=== PATIENT | male | born 1995 | race Caucasian/White ===

== ENCOUNTER 2023-06-11 01:44 | Inpatient (IN) | payer MEDICAID, OTHER, SELFPAY ==
[2023-06-11] VITALS (7 sets, daily range): BP systolic 126–149; BP diastolic 84–109; PULSE 104–128; RESP 17–20; TEMP 36.7–37.6; O2SAT 96–100; BMI 26.6; BMI 26.7
[2023-06-11 02:40] LABS: MANUAL DIFF FLAG NO
[2023-06-11 02:41] LABS: Basophils Percent Auto 0.4 % (0-2); Eosinophils Percent Auto 0.1 % (0-4); Hematocrit 48.8 % (42.0-52.0); Hemoglobin 16.6 g/dl (14.0-18.0); Imm Gran Abs Auto 0.03 X10*3/uL (0.00-0.03); Imm Gran Pct Auto 0.4 % (0.0-0.4); Lymphocytes Absolute Auto 2.2 X10*3/uL (1.2-4.9); Lymphocytes Percent Auto 27.1 % (20-40); Mean Corpuscular Volume 85.2 fL (80.0-98.0); Mean Platelet Volume 8.8 fL (9.4-12.4); Monocytes Absolute Auto 0.4 X10*3/uL (0.1-1.2); Monocytes Percent Auto 4.6 % (2-11); Neutrophils Absolute Auto 5.5 x10*3/uL (2.0-8.3); Neutrophils Percent Auto 67.4 % (45-73); Platelet Count 393 X10*3/uL (160-400); Red Blood Count 5.73 X10*6/uL (4.60-5.80); Red Cell Distribution Width 12.9 % (11.0-16.0); White Blood Count 8.1 X10*3/uL (4.8-10.8)
[2023-06-11 02:51] LABS: Amphetamine Screen Urine Not Detected (Not Detect); Barbiturates, Urine Not Detected (Not Detect); Benzodiazepines Screen Urine Not Detected (Not Detect); Cannabinoid Screen Urine Not Detected (Not Detect); Cocaine Screen Urine Not Detected (Not Detect); Fentanyl, urine Not Detected (Not Detect); Opiate Screen Urine Not Detected (Not Detect); Phencyclidine Screen Urine Not Detected (Not Detect)
[2023-06-11 03:02] LABS: COVID-19 Test Negative (Negative); IDNOW Serial# 6674DD1D
[2023-06-11 03:04] LABS: Alanine Aminotransferase 40 U/L (0-40); Albumin Level 4.9 g/dL (3.5-5.0); Alkaline Phosphatase 115 U/L (39-117); Anion Gap 19 (12-20); Aspartate Amino Transferase 42 U/L (5-37); Bilirubin Total 0.4 mg/dL (0.0-1.0); Blood Urea Nitrogen 10 mg/dL (9-16); Calcium 9.1 mg/dL (8.4-10.2); Carbon Dioxide 26 mmol/L (22-29); Chloride 105 mmol/L (96-108); Creatinine Clr Calc Pharmacy 110.6; Estimated Glomerular Filt Rate > 60; Ethanol 265 mg/dL; Glucose Random 97 mg/dL (60-115); Potassium 3.8 mmol/L (3.3-5.1); Sodium 146 mmol/L (135-145); Total Protein 8.5 g/dL (6.5-8.0)
--- NOTE | 2023-06-11 05:55 | PC.NURSE ---
Patient slept through the night, no distress observed/reported, behavior pleasant and non concerning, med rec completed/pending provider's approval, labs completed/resulted, asymptomatic of ETOH withdrawal at this time, care consult ordered/pending evaluation, will continue to monitor.
--- NOTE | 2023-06-11 07:02 | PC.NURSE ---
patient appears to remain asleep at present respirations are even and unlabored patient appears in no distress
--- NOTE | 2023-06-11 07:39 | ED.PSYCH ---
HPI - Psych General Chief Complaint: Psychiatric Symptoms Stated Complaint: SI plan Time Seen by Provider: 06/11/23 02:23 History of Present Illness HPI Narrative: woke up patient is a 28-year-old male presents today after drinking alcohol having thoughts of wanting to kill himself. Patient subsequently came to the ED for further evaluation he has no specific plans. Denies any other recreational drugs. He has a history of bipolar. He has been out of his medication for 2 Months. No diaphoresis. No fever no chills. No chest pain. Patient is from home Related Data Home Medications Medication Instructions Recorded Confirmed dextroamphetamine-amphetamine 10 1 tab PO DAILY 06/11/23 06/11/23 mg tablet dextroamphetamine-amphetamine ER 30 mg PO QAM 06/11/23 06/11/23 30 mg 24hr capsule,extend release (Adderall XR) doxepin 50 mg capsule 50 mg PO BEDTIME 06/11/23 06/11/23 lamotrigine 150 mg tablet 150 mg PO DAILY 06/11/23 06/11/23 (Lamictal) lurasidone 40 mg tablet 40 mg PO QPM 06/11/23 06/11/23 naltrexone 50 mg tablet 50 mg PO QAM 06/11/23 06/11/23 Allergies Allergy/AdvReac Type Severity Reaction Status Date / Time No Known Allergies Allergy Verified 06/11/23 02:00 Review of Systems Review of Systems: no fever no chills no chest pain or shortness of breath Yes all other systems are reviewed and are negative PMFSH Past Medical History Attestation statement: The following information was validated with the patient. Social History Social History Advance Directives: No Advance Directives Information Provided: No Physical Exam Vital Signs: Vital Signs: Last Vital Signs Temp 98.0 F 06/11/23 06:52 Pulse 104 H 06/11/23 06:52 Resp 17 06/11/23 06:52 BP 126/84 06/11/23 06:52 Pulse Ox 97 06/11/23 06:52 O2 Del Method Room Air 06/11/23 06:52 BMI result Body Mass Index 26.6 Appearance: Alert. Oriented X3. No acute distress. Eyes: Pupils equal, round and reactive to light. ENT: Pharynx normal. Neck: Normal inspection. Neck supple. No lymph nodes noted. No crepitus CVS: Normal heart rate and rhythm. Pulses normal. Normal S1 and S2 Respiratory: No respiratory distress. Breath sounds normal. No Wheezing. No rales Abdomen: Soft and nontender. No rigidity. No distention. good BS x4 Skin: Skin warm and dry. Normal skin color. Normal skin turgor. Extremities: No lower extremity edema. Neurovascular intact to all extremities. No Lacerations. No Rash Neuro: Oriented X 3. No motor deficit. No sensory deficit. Moving all extermities. No slurred speech Medical Decision Making Medical Decision Making MDM Narrative: patient's labs consistent with alcohol intoxication tox screen was otherwise negative. COVID test is negative electrolyte is normal. Will need crisis evaluation for his current predicament. Currently in stable condition. Differential Diagnosis Differential Diagnoses: The differential diagnosis associated with the presentation includes Depression, bipolar Consult Healthcare Provider Management of the patient was discussed with: Front End Developer Designer crisis Lab Data [facility] Lab Attestation statement: I reviewed the patient's lab results. 06/11/23 02:28 06/11/23 02:28 Labs: Lab Results 06/11/23 06/11/23 Range/Units 02:28 02:33 WBC 8.1 (4.8-10.8) X10*3/uL RBC 5.73 (4.60-5.80) X10*6/uL Hgb 16.6 (14.0-18.0) g/dl Hct 48.8 (42.0-52.0) % MCV 85.2 (80.0-98.0) fL MCH 29.0 (27.0-33.0) pg MCHC 34.0 (31.0-36.0) g/dl RDW 12.9 (11.0-16.0) % Plt Count 393 (160-400) X10*3/uL MPV 8.8 L (9.4-12.4) fL Immature Gran % (Auto) 0.4 (0.0-0.4) % Neut % (Auto) 67.4 (45-73) % Lymph % (Auto) 27.1 (20-40) % [place] % (Auto) 4.6 (2-11) % Eos % (Auto) 0.1 (0-4) % Baso % (Auto) 0.4 (0-2) % Lymph # (Auto) 2.2 (1.2-4.9) X10*3/uL [place] # (Auto) 0.4 (0.1-1.2) X10*3/uL Eos # (Auto) 0.0 (0.0-0.4) X10*3/uL Baso # (Auto) 0.0 (0.0-0.2) X10*3/uL Abs Immat Gran (auto) 0.03 (0.00-0.03) X10*3/uL Absolute Neuts (auto) 5.5 (2.0-8.3) x10*3/uL Absolute Nucleated RBC 0.000 (0.0-0.012) X10*3/uL Nucleated RBC % (auto) 0.0 (0.0-0.2) /100WBC Sodium 146 H (135-145) mmol/L Potassium 3.8 (3.3-5.1) mmol/L Chloride 105 (96-108) mmol/L Carbon Dioxide 26 (22-29) mmol/L Anion Gap 19 (12-20) BUN 10 (9-16) mg/dL Creatinine 0.84 (0.5-1.4) mg/dL Estim Creat Clear Calc 110.6 Estimated GFR > 60 Random Glucose 97 (60-115) mg/dL Calcium 9.1 (8.4-10.2) mg/dL Total Bilirubin 0.4 (0.0-1.0) mg/dL AST 42 H (5-37) U/L ALT 40 (0-40) U/L Alkaline Phosphatase 115 (39-117) U/L Total Protein 8.5 H (6.5-8.0) g/dL Albumin 4.9 (3.5-5.0) g/dL Urine Opiates Screen Not Detected (Not Detect) Urine Fentanyl Screen Not Detected (Not Detect) Ur Barbiturates Screen Not Detected (Not Detect) Ur Phencyclidine Scrn Not Detected (Not Detect) Ur Amphetamines Screen Not Detected (Not Detect) U Benzodiazepines Scrn Not Detected (Not Detect) Urine Cocaine Screen Not Detected (Not Detect) U Marijuana (THC) Screen Not Detected (Not Detect) Ethyl Alcohol 265 mg/dL COVID-19 (LARISSA) Negative (Negative) COVID-19 Clin Com See Note Prescription Management I considered prescription management with: Pain Medication not needed Chronic Conditions bipolar Discharge Plan Discharge Clinical Impression: Bipolar disorder Patient Disposition: Still a Patient Prescriptions: No Action lamotrigine [Lamictal] 150 mg Tablet 150 mg PO DAILY doxepin 50 mg Capsule 50 mg PO BEDTIME lurasidone 40 mg Tablet 40 mg PO QPM Rx Instructions: must administer with food (at least 350 calories) dextroamphetamine-amphetamine [Adderall XR] 30 mg Capsule,Extended Release 24hr 30 mg PO QAM naltrexone 50 mg tablet 50 mg PO QAM dextroamphetamine-amphetamine 10 mg tablet 1 tab PO DAILY Interventions: [place]-Suicide Risk Severity Scale Last Done: 06/11/23 05:51
[2023-06-11] MEDS: LORazepam 1 MG TABLET 2 MG PO (10:48)
[2023-06-11] MEDS: Thiamine HCL 100 MG TABLET PO (13:42)
[2023-06-11] MEDS: diazePAM 5 MG TABLET 20 MG PO (13:42)
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
--- NOTE | 2023-06-11 16:19 | PC.NURSE ---
Pt refused flu vaccine at this time
[2023-06-11] MEDS: Doxepin HCl 25 MG CAPSULE 50 MG PO (22:42)
[2023-06-11] MEDS: LORazepam 1 MG TABLET PO (22:42)
[2023-06-12 06:00] VITALS: BP 134/100; PULSE 112; TEMP 36.7; O2SAT 97
[2023-06-12 06:57] LABS: Estimated Average Glucose 111 mg/dL; Hemoglobin A1c % 5.5 % (<6.0)
[2023-06-12 07:12] LABS: Alanine Aminotransferase 33 U/L (0-40); Albumin Level 4.2 g/dL (3.5-5.0); Alkaline Phosphatase 109 U/L (39-117); Anion Gap 13 (12-20); Aspartate Amino Transferase 36 U/L (5-37); Bilirubin Total 1.6 mg/dL (0.0-1.0); Blood Urea Nitrogen 8 mg/dL (9-16); Calcium 9.6 mg/dL (8.4-10.2); Carbon Dioxide 27 mmol/L (22-29); Chloride 103 mmol/L (96-108); Cholesterol 214 mg/dL (<200); Creatinine Clr Calc Pharmacy 119.1; Estimated Glomerular Filt Rate > 60; Glucose Fasting 118 mg/dL (60-99); HDL Cholesterol 52 mg/dL (>40); LDL Cholesterol Calculated 110 mg/dL (<100); Potassium 3.7 mmol/L (3.3-5.1); Sodium 139 mmol/L (135-145); Total Protein 7.4 g/dL (6.5-8.0); Triglycerides 264 mg/dL (<150)
[2023-06-12 07:28] LABS: Thyroid Stimulating Hormone 1.55 uIU/mL (0.32-4.0)
[2023-06-12 07:38] LABS: Folate 10.2 ng/mL (> or = 4.0); Vitamin B12 388 pg/mL (200-900)
[2023-06-12] MEDS: Omeprazole 20 MG CAPSULE.DR PO (07:41)
[2023-06-12] MEDS: Thiamine HCL 100 MG TABLET PO (08:28)
[2023-06-12] MEDS: Naltrexone HCl 50 MG TABLET PO (08:31)
[2023-06-12] MEDS: Acetaminophen 325 MG TABLET 650 MG PO ×2 (08:34→17:30)
[2023-06-12] MEDS: LORazepam 1 MG TABLET PO ×4 (08:34→21:36)
[2023-06-12 17:34] VITALS: BP 138/83; PULSE 100; RESP 16; TEMP 36.6; O2SAT 97
--- NOTE | 2023-06-12 18:19 | HO.PSYCHPN ---
Subjective Subjective Date of Service: 06/12/23 Reason For Visit: SI Interim History: trials of latuda and abilify, both of which gave him akathisia, reportedly. felt lexapro was helpful but believes it led to his solitary manic episode, where he was spending a lot and sleeping around (and also drinking a lot and smoking a lot of cannabis). also felt lamictal was helpful but left him unable to process [his] feelings. does wish to restart prazosin, asks to start at 2 mg QHS as feels 1 mg did not help adequately. discussion held re R/B of various antidepressants in bipolar disorder, pt agrees to re-trial of wellbutrin, to start at 150 mg daily. per staff, CIWA 10 this morning and CIWA 9 this afternoon. dep 9. somewhat SI, no plan. Mental Status Exam Mental Status Exam Narrative: Appearance: wearing street clothes, fair hygiene, in NAD Behavior: cooperative Psychomotor: no agitation or retardation noted Speech: clear, normal rate/rhythm, volume, spontaneous TP: linear TC: feeling depressed Mood: depressed Affect: constricted, normo-intense, non-labile SI: passive HI: none expressed VH/AH: none expressed Delusions: none expressed Insight/judgment: poor x 2. memory/cog: alert, oriented x 3. grossly intact to conversational testing. Diagnostics Vital Signs (24Hr): Vital Signs - 24 hr 06/11/23 19:56 06/12/23 06:00 06/12/23 17:34 Temperature 98.1 F 98.0 F 97.8 F Pulse Rate 125 H 112 H 100 Respiratory Rate 18 16 Blood Pressure 135/86 134/100 H 138/83 Pulse Oximetry 100 97 97 Oxygen Delivery Method Room Air Room Air Room Air BMI result Body Mass Index 26.7 Labs 06/11/23 02:28 06/12/23 06:35 Labs: Laboratory Results - last 48 hr 06/11/23 06/11/23 06/12/23 02:28 02:33 06:35 WBC 8.1 RBC 5.73 Hgb 16.6 Hct 48.8 MCV 85.2 MCH 29.0 MCHC 34.0 RDW 12.9 Plt Count 393 MPV 8.8 L Immature Gran % (Auto) 0.4 Neut % (Auto) 67.4 Lymph % (Auto) 27.1 [place]ts % (Auto) 4.6 Eos % (Auto) 0.1 Baso % (Auto) 0.4 Lymph # (Auto) 2.2 Butts # (Auto) 0.4 Eos # (Auto) 0.0 Baso # (Auto) 0.0 Abs Immat Gran (auto) 0.03 Absolute Neuts (auto) 5.5 Absolute Nucleated RBC 0.000 Nucleated RBC % (auto) 0.0 Sodium 146 H 139 Potassium 3.8 3.7 Chloride 105 103 Carbon Dioxide 26 27 Anion Gap 19 13 BUN 10 8 L Creatinine 0.84 0.78 Estim Creat Clear Calc 110.6 119.1 Estimated GFR > 60 > 60 Random Glucose 97 Fasting Glucose 118 H Estimat Average Glucose 111 Hemoglobin A1c % 5.5 Calcium 9.1 9.6 Total Bilirubin 0.4 1.6 H AST 42 H 36 ALT 40 33 Alkaline Phosphatase 115 109 Total Protein 8.5 H 7.4 Albumin 4.9 4.2 Triglycerides 264 H Cholesterol 214 H LDL Cholesterol, Calc 110 H HDL Cholesterol 52 Vitamin B12 388 Folate 10.2 TSH 1.55 Urine Opiates Screen Not Detected Urine Fentanyl Screen Not Detected Ur Barbiturates Screen Not Detected Ur Phencyclidine Scrn Not Detected Ur Amphetamines Screen Not Detected U Benzodiazepines Scrn Not Detected Urine Cocaine Screen Not Detected U Marijuana (THC) Screen Not Detected Ethyl Alcohol 265 COVID-19 (LARISSA) Negative COVID-19 Clin Com See Note Medications Medications Current Medications Acetaminophen (Acetaminophen 325 Mg Tablet) 650 mg PO Q6H PRN PRN Reason: Headache/Pain Mild Scale (1-3) Last Admin: 06/12/23 17:30 Dose: 650 mg Al Hydroxide/Mg Hydroxide (Magnesium Hydrox/Alum Hydrox 30 Ml Oral.Susp) 30 ml PO Q6H PRN PRN Reason: Heartburn/Nausea Bupropion HCl (Bupropion Hcl Xl 150 Mg Tab.Er.24h) 150 mg PO DAILY JAIRON Doxepin HCl (Doxepin Hcl 25 Mg Capsule) 50 mg PO BEDTIME JAIRON Last Admin: 06/11/23 22:42 Dose: 50 mg Hydroxyzine HCl (Hydroxyzine Hcl 25 Mg Tablet) 25 mg PO Q6H PRN PRN Reason: Anxiety Lorazepam (Lorazepam 1 Mg Tablet) 1 mg PO Q2H PRN PRN Reason: CIWA 8-11 Last Admin: 11/11/23 17:31 Dose: 1 mg Lorazepam (Lorazepam 1 Mg Tablet) 2 mg PO Q2H PRN PRN Reason: CIWA 12-15 Lorazepam (Lorazepam 1 Mg Tablet) 3 mg PO Q2H PRN PRN Reason: CIWA > 15; and call Magnesium Hydroxide (Milk Of Magnesia 30 Ml Oral.Susp) 30 ml PO DAILY PRN PRN Reason: Constipation Naltrexone HCl (Naltrexone Hcl 50 Mg Tablet) 50 mg PO DAILY [facility] Last Admin: 06/12/23 08:31 Dose: 50 mg Omeprazole (Omeprazole 20 Mg Capsule.Dr) 20 mg PO DAILY@0630 [facility] Last Admin: 06/12/23 07:41 Dose: 20 mg Prazosin HCl (Prazosin Hcl 1 Mg Capsule) 2 mg PO BEDTIME [facility]; Protocol Thiamine HCl (Thiamine Hcl 100 Mg Tablet) 100 mg PO DAILY [facility] Last Admin: 06/12/23 08:28 Dose: 100 mg Trazodone HCl (Trazodone Hcl 50 Mg Tablet) 50 mg PO BEDTIME MRX1 PRN PRN Reason: Insomnia Allergies Allergies Allergy/AdvReac Type Severity Reaction Status Date / Time No Known Allergies Allergy Verified 06/11/23 02:00 Assessment & Plan Assessment & Plan (1) Mood disorder: Status: Acute Code(s): F39 - Unspecified mood [affective] disorder (2) Alcohol use disorder, moderate, dependence: Status: Acute Code(s): F10.20 - Alcohol dependence, uncomplicated Plan Mr. Angelo is a 28 year-old male with hx of alcohol use disoder, mood disorder (but based on his description do not suspect hx of willy nor hypomania, he does have a hx of trauma that apparently memories have been more pronounced recently). He has had more inpatient admissions since 2019, with his first suicide attempt earlier this year via OD on doxepin. He seems to minimize to some extend alcohol use, but does become more tearful when discussing effects of alcohol use on his ability to sustain job, and relationship with family. We discussed risks, benefits and alternative treatment options. He agreed to continue doxepin 50mg po qhs. He has not taken lamictal for several month and reports little to no effect- will not continue. He reports akathisia with latuda- will not continue this medication either. He discussed holding off on adderall- will increase SBP, HR as he continues with withdrawal. He discussed at length naltrexone to decrease alcohol use including fact that it will not make him sick if he does relapse on alcohol but he may in fact drink less than without it. We discussed CIWA. No hx of DTs, elevated SBP and HR- will give loading dose of diazepam 20mg po once. Continue CIWA q4h, diazepam dose base on ciwa score. Start thiamine 100mg po daily- advised pt to continue taking it. Will also add omeprazole. PLAN 1. Admit to M3, CV, 15 minutes checks for safety 2. continue doxepin 50mg po qhs. 3. continue ciwa q4h, diazepam dose per score. Given loading dose of diazepam 20mg po once. continue thiamine 100mg po daily 4. obtain collateral information 5. aftercare planning. 06/12: receiving ativan per CIWA, has scored for 1 mg twice today. start prazosin 2 mg QHS and wellbutrin 150 mg daily. continues depressed with passive SI. Reason for continued inpatient stay Substantial Risk for: harm to self, inability to function and rapid decompensation Time Spent With Patient Time: Total time managing care of this patient today __25__ minutes.
[2023-06-12 21:30] VITALS: BP 122/72; PULSE 99; RESP 16; TEMP 36.7; O2SAT 97
[2023-06-12] MEDS: Prazosin HCL 1 MG CAPSULE 2 MG PO (21:36)
[2023-06-12] MEDS: Doxepin HCl 25 MG CAPSULE 50 MG PO (21:36)
[2023-06-13 08:13] VITALS: BP 123/74; PULSE 111; RESP 20; TEMP 36.5; O2SAT 96
[2023-06-13] MEDS: buPROPion HCl XL 150 MG TAB.ER.24H PO (08:41)
[2023-06-13] MEDS: Thiamine HCL 100 MG TABLET PO (08:41)
[2023-06-13] MEDS: Omeprazole 20 MG CAPSULE.DR PO (08:41)
[2023-06-13] MEDS: Naltrexone HCl 50 MG TABLET PO (08:42)
[2023-06-13 20:00] VITALS: BP 140/73; PULSE 102; RESP 14; TEMP 36.9; O2SAT 98
--- NOTE | 2023-06-13 20:11 | HO.PSYCHPN ---
Subjective Subjective Date of Service: 06/13/23 Reason For Visit: SI Interim History: calm, cooperative. napping afternoon. no issues with wellbutrin. asking about restarting adderall. per staff, CIWA of 3 and 5 today. nightmares, prazosin helped. Mental Status Exam Mental Status Exam Narrative: Appearance: wearing street clothes, fair hygiene, in NAD Behavior: cooperative Psychomotor: no agitation or retardation noted Speech: clear, normal rate/rhythm, volume, spontaneous TP: linear TC: feeling depressed Mood: depressed Affect: constricted, normo-intense, non-labile SI: passive HI: none expressed VH/AH: none expressed Delusions: none expressed Insight/judgment: poor x 2. memory/cog: alert, oriented x 3. grossly intact to conversational testing. Diagnostics Vital Signs (24Hr): Vital Signs - 24 hr 06/12/23 21:30 06/13/23 08:13 Temperature 98.1 F 97.7 F Pulse Rate 99 111 H Respiratory Rate 16 20 Blood Pressure 122/72 123/74 Pulse Oximetry 97 96 Oxygen Delivery Method Room Air Room Air BMI result Body Mass Index 26.7 Labs 06/11/23 02:28 06/12/23 06:35 Labs: Laboratory Results - last 48 hr 06/12/23 06:35 Sodium 139 Potassium 3.7 Chloride 103 Carbon Dioxide 27 Anion Gap 13 BUN 8 L Creatinine 0.78 Estim Creat Clear Calc 119.1 Estimated GFR > 60 Fasting Glucose 118 H Estimat Average Glucose 111 Hemoglobin A1c % 5.5 Calcium 9.6 Total Bilirubin 1.6 H AST 36 ALT 33 Alkaline Phosphatase 109 Total Protein 7.4 Albumin 4.2 Triglycerides 264 H Cholesterol 214 H LDL Cholesterol, Calc 110 H HDL Cholesterol 52 Vitamin B12 388 Folate 10.2 TSH 1.55 Medications Medications Current Medications Acetaminophen (Acetaminophen 325 Mg Tablet) 650 mg PO Q6H PRN PRN Reason: Headache/Pain Mild Scale (1-3) Last Admin: 06/12/23 17:30 Dose: 650 mg Al Hydroxide/Mg Hydroxide (Magnesium Hydrox/Alum Hydrox 30 Ml Oral.Susp) 30 ml PO Q6H PRN PRN Reason: Heartburn/Nausea Bupropion HCl (Bupropion Hcl Xl 150 Mg Tab.Er.24h) 150 mg PO DAILY JAIRON Last Admin: 06/13/23 08:41 Dose: 150 mg Doxepin HCl (Doxepin Hcl 25 Mg Capsule) 50 mg PO BEDTIME [facility] Last Admin: 06/12/23 21:36 Dose: 50 mg Hydroxyzine HCl (Hydroxyzine Hcl 25 Mg Tablet) 25 mg PO Q6H PRN PRN Reason: Anxiety Lorazepam (Lorazepam 1 Mg Tablet) 2 mg PO ONCE ONE Stop: 06/13/23 21:01 Magnesium Hydroxide (Milk Of Magnesia 30 Ml Oral.Susp) 30 ml PO DAILY PRN PRN Reason: Constipation Naltrexone HCl (Naltrexone Hcl 50 Mg Tablet) 50 mg PO DAILY [facility] Last Admin: 06/13/23 08:42 Dose: 50 mg Omeprazole (Omeprazole 20 Mg Capsule.Dr) 20 mg PO DAILY@0630 [facility] Last Admin: 06/13/23 08:41 Dose: 20 mg Prazosin HCl (Prazosin Hcl 1 Mg Capsule) 2 mg PO BEDTIME [facility]; Protocol Last Admin: 06/12/23 21:36 Dose: 2 mg Thiamine HCl (Thiamine Hcl 100 Mg Tablet) 100 mg PO DAILY [facility] Last Admin: 06/13/23 08:41 Dose: 100 mg Trazodone HCl (Trazodone Hcl 50 Mg Tablet) 50 mg PO BEDTIME [id number] PRN PRN Reason: Insomnia Allergies Allergies Allergy/AdvReac Type Severity Reaction Status Date / Time No Known Allergies Allergy Verified 06/11/23 02:00 Assessment & Plan Assessment & Plan (1) Mood disorder: Status: Acute Code(s): F39 - Unspecified mood [affective] disorder (2) Alcohol use disorder, moderate, dependence: Status: Acute Code(s): F10.20 - Alcohol dependence, uncomplicated Plan Mr. Angelo is a 28 year-old male with hx of alcohol use disoder, mood disorder (but based on his description do not suspect hx of willy nor hypomania, he does have a hx of trauma that apparently memories have been more pronounced recently). He has had more inpatient admissions since 2020, with his first suicide attempt earlier this year via OD on doxepin. He seems to minimize to some extend alcohol use, but does become more tearful when discussing effects of alcohol use on his ability to sustain job, and relationship with family. We discussed risks, benefits and alternative treatment options. He agreed to continue doxepin 50mg po qhs. He has not taken lamictal for several month and reports little to no effect- will not continue. He reports akathisia with latuda- will not continue this medication either. He discussed holding off on adderall- will increase SBP, HR as he continues with withdrawal. He discussed at length naltrexone to decrease alcohol use including fact that it will not make him sick if he does relapse on alcohol but he may in fact drink less than without it. We discussed CIWA. No hx of DTs, elevated SBP and HR- will give loading dose of diazepam 20mg po once. Continue CIWA q4h, diazepam dose base on ciwa score. Start thiamine 100mg po daily- advised pt to continue taking it. Will also add omeprazole. PLAN 1. Admit to M3, CV, 15 minutes checks for safety 2. continue doxepin 50mg po qhs. 3. continue ciwa q4h, diazepam dose per score. Given loading dose of diazepam 20mg po once. continue thiamine 100mg po daily 4. obtain collateral information 5. aftercare planning. 06/12: receiving ativan per CIWA, has scored for 1 mg twice today. start prazosin 2 mg QHS and wellbutrin 150 mg daily. continues depressed with passive SI. 06/13: had 3 mg ativan 06/11 and 4 mg 06/12. give 2 mg at HS tonight and then DC. DC CIWA and ativan PRNs. tolerating wellbutrin well. asking about restarting adderall, will verify has outpt provider who will continue script once discharged. Reason for continued inpatient stay Substantial Risk for: inability to function and rapid decompensation Time Spent With Patient Time: Total time managing care of this patient today ____ minutes.
[2023-06-13] MEDS: Doxepin HCl 25 MG CAPSULE 50 MG PO (20:40)
[2023-06-13] MEDS: Prazosin HCL 1 MG CAPSULE 2 MG PO (20:40)
[2023-06-13] MEDS: LORazepam 1 MG TABLET 2 MG PO (20:49)
[2023-06-14] MEDS: Naltrexone HCl 50 MG TABLET PO (08:40)
[2023-06-14] MEDS: Omeprazole 20 MG CAPSULE.DR PO (08:40)
[2023-06-14] MEDS: Thiamine HCL 100 MG TABLET PO (08:40)
[2023-06-14] MEDS: buPROPion HCl XL 150 MG TAB.ER.24H PO (08:40)
[2023-06-14 09:04] VITALS: BP 115/62; PULSE 96; RESP 20; TEMP 37.3; O2SAT 99
--- NOTE | 2023-06-14 13:35 | P.PNPSI_ITS ---
Subjective Subjective Date of Service: 06/14/23 Reason For Visit: SI Interim History: calm, cooperative. mood improved. would like to restart adderall. XR only, as of tomorrow. per staff, dep 9. anxiety better after ativan. reports seeing vivid pictures when he closes his eyes, as well as cartoonish images on the TV. guarded, napping wednesday. Mental Status Exam Mental Status Exam Narrative: Appearance: wearing street clothes, fair hygiene, in NAD Behavior: cooperative Psychomotor: no agitation or retardation noted Speech: clear, normal rate/rhythm, volume, spontaneous TP: linear TC: no delusions or paranoia expressed Mood: a little better Affect: flexible, normo-intense, non-labile SI: none expressed HI: none expressed VH/AH: none expressed Delusions: none expressed Insight/judgment: poor x 2. memory/cog: alert, oriented x 3. grossly intact to conversational testing. Diagnostics Vital Signs (24Hr): Vital Signs - 24 hr 06/13/23 20:00 06/14/23 09:04 Temperature 98.4 F 99.1 F Pulse Rate 102 H 96 Respiratory Rate 14 20 Blood Pressure 140/73 H 115/62 Pulse Oximetry 98 99 Oxygen Delivery Method Room Air Room Air BMI result Body Mass Index 26.7 Labs 06/11/23 02:28 06/12/23 06:35 Medications Medications Current Medications Acetaminophen (Acetaminophen 325 Mg Tablet) 650 mg PO Q6H PRN PRN Reason: Headache/Pain Mild Scale (1-3) Last Admin: 06/12/23 17:30 Dose: 650 mg Al Hydroxide/Mg Hydroxide (Magnesium Hydrox/Alum Hydrox 30 Ml Oral.Susp) 30 ml PO Q6H PRN PRN Reason: Heartburn/Nausea Amphetamine/Dextroamphetamine (Dextroamphetamine/Amphetamine Xr 10 Mg Cap.Er.24h) 30 mg PO DAILY@0700 [facility]IRON Bupropion HCl (Bupropion Hcl Xl 150 Mg Tab.Er.24h) 150 mg PO DAILY JAIRON Last Admin: 06/14/23 08:40 Dose: 150 mg Doxepin HCl (Doxepin Hcl 25 Mg Capsule) 50 mg PO BEDTIME [facility]IRON Last Admin: 06/13/23 20:40 Dose: 50 mg Hydroxyzine HCl (Hydroxyzine Hcl 25 Mg Tablet) 25 mg PO Q6H PRN PRN Reason: Anxiety Magnesium Hydroxide (Milk Of Magnesia 30 Ml Oral.Susp) 30 ml PO DAILY PRN PRN Reason: Constipation Naltrexone HCl (Naltrexone Hcl 50 Mg Tablet) 50 mg PO DAILY [facility] Last Admin: 06/14/23 08:40 Dose: 50 mg Omeprazole (Omeprazole 20 Mg Capsule.Dr) 20 mg PO DAILY@0630 [facility] Last Admin: 06/14/23 08:40 Dose: 20 mg Prazosin HCl (Prazosin Hcl 1 Mg Capsule) 2 mg PO BEDTIME [facility]; Protocol Last Admin: 06/13/23 20:40 Dose: 2 mg Thiamine HCl (Thiamine Hcl 100 Mg Tablet) 100 mg PO DAILY [facility] Last Admin: 06/14/23 08:40 Dose: 100 mg Trazodone HCl (Trazodone Hcl 50 Mg Tablet) 50 mg PO BEDTIME MRX1 PRN PRN Reason: Insomnia Allergies Allergies Allergy/AdvReac Type Severity Reaction Status Date / Time No Known Allergies Allergy Verified 06/11/23 02:00 Assessment & Plan Assessment & Plan (1) Mood disorder: Status: Acute Code(s): F39 - Unspecified mood [affective] disorder (2) Alcohol use disorder, moderate, dependence: Status: Acute Code(s): F10.20 - Alcohol dependence, uncomplicated Plan Mr. Angelo is a 28 year-old male with hx of alcohol use disoder, mood disorder (but based on his description do not suspect hx of willy nor hypomania, he does have a hx of trauma that apparently memories have been more pronounced recently). He has had more inpatient admissions since 2019, with his first suicide attempt earlier this year via OD on doxepin. He seems to minimize to some extend alcohol use, but does become more tearful when discussing effects of alcohol use on his ability to sustain job, and relationship with family. We discussed risks, benefits and alternative treatment options. He agreed to continue doxepin 50mg po qhs. He has not taken lamictal for several month and reports little to no effect- will not continue. He reports akathisia with latuda- will not continue this medication either. He discussed holding off on adderall- will increase SBP, HR as he continues with withdrawal. He discussed at length naltrexone to decrease alcohol use including fact that it will not make him sick if he does relapse on alcohol but he may in fact drink less than without it. We discussed CIWA. No hx of DTs, elevated SBP and HR- will give loading dose of diazepam 20mg po once. Continue CIWA q4h, diazepam dose base on ciwa score. Start thiamine 100mg po daily- advised pt to continue taking it. Will also add omeprazole. PLAN 1. Admit to M3, CV, 15 minutes checks for safety 2. continue doxepin 50mg po qhs. 3. continue ciwa q4h, diazepam dose per score. Given loading dose of diazepam 20mg po once. continue thiamine 100mg po daily 4. obtain collateral information 5. aftercare planning. 06/12: receiving ativan per CIWA, has scored for 1 mg twice today. start prazosin 2 mg QHS and wellbutrin 150 mg daily. continues depressed with passive SI. 06/13: had 3 mg ativan 06/11 and 4 mg 06/12. give 2 mg at HS tonight and then DC. DC CIWA and ativan PRNs. tolerating wellbutrin well. asking about restarting adderall, will verify has outpt provider who will continue script once discharged. 06/14: restart adderall XR 30 mg tomorrow morning. mood improved. continue current mgmt otherwise. Reason for continued inpatient stay Substantial Risk for: rapid decompensation Time Spent With Patient Time: Total time managing care of this patient today __25__ minutes.
[2023-06-14 19:50] VITALS: BP 129/69; PULSE 98; RESP 16; TEMP 36.9; O2SAT 98
[2023-06-14] MEDS: Prazosin HCL 1 MG CAPSULE 2 MG PO (20:11)
[2023-06-14] MEDS: Doxepin HCl 25 MG CAPSULE 50 MG PO (20:12)
[2023-06-15] MEDS: Omeprazole 20 MG CAPSULE.DR PO (06:55)
[2023-06-15] MEDS: Dextroamphetamine/Amphetamine XR 10 MG CAP.ER.24H 30 MG PO (06:56)
[2023-06-15] MEDS: Thiamine HCL 100 MG TABLET PO (08:14)
[2023-06-15] MEDS: Naltrexone HCl 50 MG TABLET PO (08:14)
[2023-06-15] MEDS: buPROPion HCl XL 150 MG TAB.ER.24H PO (08:14)
[2023-06-15 08:32] VITALS: BP 131/81; PULSE 90; RESP 18; TEMP 36.8; O2SAT 99
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
[2023-06-15] MEDS: Nicotine 21 MG PATCH.TD24 TRANSDERMA (13:54)
[2023-06-15 21:10] VITALS: BP 135/81; PULSE 104; RESP 18; TEMP 36.9; O2SAT 97
[2023-06-15] MEDS: Prazosin HCL 1 MG CAPSULE 2 MG PO (21:14)
[2023-06-15] MEDS: Doxepin HCl 25 MG CAPSULE 75 MG PO (21:14)
[2023-06-16] MEDS: Dextroamphetamine/Amphetamine XR 10 MG CAP.ER.24H 30 MG PO (06:47)
[2023-06-16] MEDS: Omeprazole 20 MG CAPSULE.DR PO (06:47)
[2023-06-16] MEDS: Nicotine 21 MG PATCH.TD24 TRANSDERMA (08:06)
[2023-06-16] MEDS: Thiamine HCL 100 MG TABLET PO (08:07)
[2023-06-16] MEDS: buPROPion HCl XL 150 MG TAB.ER.24H PO (08:07)
[2023-06-16] MEDS: Naltrexone HCl 50 MG TABLET PO (08:07)
[2023-06-16 08:29] VITALS: BP 137/99; PULSE 107; RESP 18; TEMP 36.9; O2SAT 98
== END 2023-06-16 11:10 | disposition home or self-care (01) | DRG 754 ==
LOC: HO.ED 07:43 → HO.PADLT16 14:26
PROVIDERS: Admitting Provider Social Worker; Emergency Provider Emergency Medicine Emergency Medical Services; Visit Provider Psychiatry & Neurology Psychiatry
DX: F32.A Depression, unspecified (principal); R45.851 Suicidal ideations; F10.229 Alcohol dependence with intoxication, unspecified; Z20.822 Contact with and (suspected) exposure to COVID-19; Y90.8 Blood alcohol level of 240 mg/100 ml or more; Z79.899 Other long term (current) drug therapy
CPT/HCPCS: 36415; 80053; 80061; 80307; 82607; 82746; 83036; 84443; 85025; 87635; 99284; S9485

== ENCOUNTER → 2023-06-11 14:17 | Outpatient (BNV) | payer SELFPAY | PROVIDERS: Admitting Provider Social Worker; Emergency Provider Emergency Medicine Emergency Medical Services; Visit Provider Psychiatry & Neurology Psychiatry | DX: F39 Unspecified mood [affective] disorder (principal); F10.20 Alcohol dependence, uncomplicated | CPT/HCPCS: 90792; 99231; 99232; 99239 ==